=== PATIENT | female | born 1965 | race Caucasian/White ===

== ENCOUNTER 2018-06-15 09:10 | Outpatient (CLI) | payer OTHER | END 2018-06-15 23:59 | disposition home or self-care (01) | LOC: CFH 09:10 | PROVIDERS: ATTEND Student in an Organized Health Care Education/Training Program | DX: M50.123 Cervical disc disorder at C6-C7 level with radiculopathy (principal); M47.23 Other spondylosis with radiculopathy, cervicothoracic region; M48.02 Spinal stenosis, cervical region | CPT/HCPCS: 72141 ==

== ENCOUNTER 2019-05-08 11:57 | Outpatient (CLI) | payer OTHER | END 2019-05-08 23:59 | disposition home or self-care (01) | LOC: STAR 11:57 | PROVIDERS: ATTEND Neurological Surgery | DX: Z01.811 Encounter for preprocedural respiratory examination (principal); M47.892 Other spondylosis, cervical region; M50.121 Cervical disc disorder at C4-C5 level with radiculopathy; R79.1 Abnormal coagulation profile; R94.31 Abnormal electrocardiogram [ECG] [EKG]; R82.90 Unspecified abnormal findings in urine | CPT/HCPCS: 71046; 93005 ==